=== PATIENT | male | born 1955 | race Caucasian/White ===

== ENCOUNTER 2016-05-16 11:59 | Emergency (ER) | payer OTHER ==
[~2016-05-16] VITALS: Ht 180.3 cm; Wt 62.3 kg
[~2016-05-16 11:59] MED LIST: /AUGM875TA OR; /MOXI40TA GT; ACET50TA GT; ACET650T12 PO; ACET65TA OR; ALB2.5NEB NEB; AMOX875T19 GT; BACL10TA2 GT; BACT800T5 GT; BACT800T5 PEG; CAPT125TA GT; CAPT125TA PO; CEFT500T OR; CETI10TA GT; CETI10TA PO; CETI5SOL3 PO; CLIN300C GT; CLIN300C OR; CLIN300C PEG; CLOT10TR MT; COZA25TA8 OR; DEXILANT PO; ERYT2SO GT; FLON0.05; FLUD0.1T GT; FLUD1TA PO; LEVA500T PO; LEVO100T5 PO; LEVO25TABR GT; METO5TAB2 OR; MIDO2.5T GT; MIDO25TA PO; NASONEX INH; PREV30CA11 PO; PREV30CA6 GT; SING10TA31 GT; SULF0.1S GT; TYLE325T5 PO; VITAMIN D PO; XANA0.25 GT; ZOLO20CO GT; ZOLO50TA GT; [UNRECOGNIZED DRUG - CODE] GT
[2016-05-16] MEDS ORDERED: NIFE10CA2 PO (12:15)
[2016-05-16 13:14] LABS: BASO % 0.7 % (0.0-1.0); EOS # 0.1 K/mm3 (0.0-0.50); EOS % 1.8 % (0.0-3.0); LARGE UNSTAINED CELL # 0.1 K/mm3 (0.0-0.4); LARGE UNSTAINED CELL % 1.1 % (0.0-4.0); LYMPH # 0.6 K/mm3 (1.5-4.5); LYMPH % 8.9 % (24.0-44.0); MEAN CORPUSCULAR HEMOGLOBIN 30.2 pg (27.0-33.0); MEAN CORPUSCULAR HGB CONC 32.8 g/dl (32.0-36.5); MEAN CORPUSCULAR VOLUME 92.1 fl (80.0-96.0); MONO # 0.2 K/mm3 (0.0-0.8); MONO % 4.2 % (0.0-5.0); NEUTROPHILS # 4.7 K/mm3 (1.8-7.7); NEUTROPHILS % 83.3 % (36.0-66.0); PLATELET COUNT, AUTOMATED 166 k/mm3 (150-450); WHITE BLOOD COUNT 5.6 K/mm3 (4.0-10.0)
[2016-05-16] MEDS ORDERED: METOCLOPRAMIDE INJ 10MG/2ML VIAL (J2765) IV ONE (13:15)
[2016-05-16] MEDS ORDERED: MORPHINE 2 MG/ML 1ML SYRINGE IV PRN (13:15)
[2016-05-16] MEDS ORDERED: KETOROLAC 30 MG/ML VIAL (J1885) IV ONE (13:15)
[2016-05-16 13:26] LABS: ANION GAP 4 MEQ/L (8-16); BLOOD UREA NITROGEN 9 MG/DL (7-18); CALCIUM LEVEL 9.4 MG/DL (8.5-10.1); CARBON DIOXIDE LEVEL 30 MEQ/L (21-32); CHLORIDE LEVEL 104 MEQ/L (98-107); CREATININE FOR GFR 0.66 MG/DL (0.70-1.30); GLOMERULAR FILTRATION RATE > 60.0 (>56); GLUCOSE, FASTING 95 MG/DL (70-105); POTASSIUM SERUM 3.5 MEQ/L (3.5-5.1); SODIUM LEVEL 138 MEQ/L (136-145)
[2016-05-16 13:28] LABS: INR 1.02
[2016-05-16 13:38] LABS: THYROXINE (T4) 9.7 UG/DL (4.5-12.0)
[2016-05-16] MEDS ORDERED: NS 500 ML IV ONE (14:45)
--- NOTE | 2016-05-16 15:18 | REP ---
Emergency noncontrast head CT. History: CVA. Comparison head CT study is from October 25, 2014. CT findings: Digital lateral film critic radiograph is unremarkable. Bone window settings demonstrate an intact bony calvarium. There is polysinusitis change involving bilateral ethmoid, right sphenoid, left maxillary and right frontal sinuses. This is somewhat more pronounced than on the prior study. There is vascular calcification in the distal carotid arteries bilaterally. There are two small old lacunar infarcts in the basal ganglia on the left side. These are unchanged from the October 25, 2014 prior study. There is physiologic calcification of the basal ganglia on the right, unchanged. Andres-white differentiation pattern is intact otherwise. There is no evidence of intracranial hemorrhage. No acute infarction, mass, extra-axial fluid collection or midline shift is seen. Impression: Vascular calcification. Minimal diffuse atrophy. There are two old lacunar infarcts in the left basal ganglia unchanged. No acute intracranial lesion. Signed by Kashif Sykes MD 05/16/2016 03:53 P
--- NOTE | 2016-05-16 15:31 | REP ---
CHEST, SINGLE VIEW: Single view of the chest is performed and compared to prior study of 02/14/2016. There is slight elevation of the left hemidiaphragm. There is mild left apical pleural thickening. There is no acute infiltrate. The heart is normal in size. There is calcification and tortuosity of the thoracic aorta. The mediastinal silhouette is unchanged. There are degenerative changes of the spine. IMPRESSION: No acute infiltrate. Signed by Arcadio Andres MD 05/16/2016 04:24 P
[2016-05-16] MEDS ORDERED: MIDODRINE 2.5 MG TAB PO ONE (16:00)
[2016-05-16] MEDS ORDERED: NORCOTAB PO (16:29)
[2016-05-16] MEDS ORDERED: IBUP600T26 PO (16:32)
--- NOTE | 2016-05-16 17:00 | ECGEPIP ---
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
[2016-05-16 17:34] VITALS: BP 144/95
[2016-05-16] MEDS ORDERED: METO5TAB2 PO (17:39)
[2016-05-16] MEDS ORDERED: REGL5TAB2 PO (17:40)
== END 2016-05-16 17:52 | disposition home or self-care (01) ==
LOC: M ED 14:43
DX: R51 Headache (principal); I10 Essential (primary) hypertension
CPT/HCPCS: 36415; 70450; 71010; 80048; 82550; 82553; 84436; 84443; 84479; 85025; 85610; 85730; 86850; 86900; 86901; 93005; 93041; 94760; 96374; 96375; 99285; J1885; J2765

== ENCOUNTER 2016-07-28 16:32 | Emergency (ER) | payer OTHER ==
[~2016-07-28] VITALS: Ht 180.3 cm; Wt 63.8 kg
[~2016-07-28 16:32] MED LIST changes: +IBUP600T26 PO; +METO5TAB2 PO; +NIFE10CA2 PO; +NORCOTAB PO; +REGL5TAB2 PO
[2016-07-28] MEDS ORDERED: ASCO500T PO (16:46)
[2016-07-28] MEDS ORDERED: AMLO5TAB2 PO (16:46)
[2016-07-28 18:44] LABS: BASO % 0.7 % (0.0-1.0); EOS # 0.6 K/mm3 (0.0-0.50); EOS % 8.8 % (0.0-3.0); LARGE UNSTAINED CELL # 0.1 K/mm3 (0.0-0.4); LARGE UNSTAINED CELL % 1.3 % (0.0-4.0); LYMPH # 0.7 K/mm3 (1.5-4.5); LYMPH % 9.7 % (24.0-44.0); MEAN CORPUSCULAR HEMOGLOBIN 31.9 pg (27.0-33.0); MEAN CORPUSCULAR HGB CONC 33.8 g/dl (32.0-36.5); MEAN CORPUSCULAR VOLUME 94.4 fl (80.0-96.0); MONO # 0.3 K/mm3 (0.0-0.8); MONO % 4.7 % (0.0-5.0); NEUTROPHILS # 4.7 K/mm3 (1.8-7.7); NEUTROPHILS % 74.8 % (36.0-66.0); PLATELET COUNT, AUTOMATED 206 k/mm3 (150-450); RED CELL DISTRIBUTION WIDTH 14.3 % (11.5-14.5); WHITE BLOOD COUNT 6.3 K/mm3 (4.0-10.0)
[2016-07-28 18:47] LABS: INR 0.91
[2016-07-28 18:58] LABS: ANION GAP 5 MEQ/L (8-16); BLOOD UREA NITROGEN 18 MG/DL (7-18); CALCIUM LEVEL 9.2 MG/DL (8.5-10.1); CARBON DIOXIDE LEVEL 30 MEQ/L (21-32); CHLORIDE LEVEL 105 MEQ/L (98-107); CREATININE FOR GFR 1.05 MG/DL (0.70-1.30); GLOMERULAR FILTRATION RATE > 60.0 (>56); GLUCOSE, FASTING 89 MG/DL (70-105); POTASSIUM SERUM 4.2 MEQ/L (3.5-5.1); SODIUM LEVEL 140 MEQ/L (136-145)
--- NOTE | 2016-07-28 19:00 | REPUSA ---
CT of the head Clinical history: CVA. Comparison: 05/16/2016. Technique: Multiple axial CT images were obtained through the head without administration of contrast . Findings: The ventricles and sulci are symmetric bilaterally. There is no evidence of acute hemorrhag e or infarct. There is no midline shift, mass effect, or extra-axial fluid collection. The osseous st ructures are unremarkable. The visualized paranasal sinuses and mastoid air cells are clear. Impression: Negative study.
--- NOTE | 2016-07-28 19:09 | REP ---
AP PORTABLE CHEST: 07/28/2016. Comparison: 05/16/2016, 02/14/2016 PA and lateral chest. Clinical history: CVA. Findings: Lungs are adequately inflated. No effusion, infiltrate, atelectasis or mass. The heart, mediastinal and hilar contours were normal for portable technique. There is mildly tortuous, normal for age. Airway is intact. No mediastinal or hilar contour abnormality. Some degenerative changes in the spine and shoulders are mild. Impression: 1. No acute cardiopulmonary disease, stable chest. Signed by Zbigniew Danielle MD 07/28/2016 08:51 P
[2016-07-28] MEDS ORDERED: NS 1,000 ML IV ONE (20:00)
[2016-07-28] MEDS ORDERED: MECL-68 PO (22:50)
[2016-07-28 23:02] VITALS: BP 132/89
--- NOTE | 2016-07-29 07:39 | ECGEPIP ---
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
== END 2016-07-28 23:03 | disposition home or self-care (01) ==
LOC: M ED 18:41
DX: H81.93 Unspecified disorder of vestibular function, bilateral (principal)

== ENCOUNTER → 2016-09-22 | Outpatient (CLI) | payer OTHER ==
[~2016-09-22] MED LIST changes: +AMLO5TAB2 PO; +ASCO500T PO; +AZIT-12 PO; +FLUD0.1T PO; -FLUD1TA PO; +IBUP-1022 PO; -IBUP600T26 PO; +LEVA1TAB2 PO; -LEVA500T PO; +LEVO25TA5 PO; +MECL-68 PO; +MIDO2.5T PO; -MIDO25TA PO; +PREV1CAP PO; -PREV30CA11 PO; +ZYRT10CA PO; +clotrimazole PO
--- NOTE | 2016-09-22 15:16 | REP ---
CAROTID ULTRASOUND: Real-time ultrasound evaluation and duplex Doppler interrogation of the extracranial carotid vasculature is performed. There is mild plaquing and narrowing in both carotid bulbs extending into the internal and external carotid arteries. Luminal narrowing is less than 50%. There is no evidence of hemodynamically significant stenosis of either internal carotid artery. Normal flow velocities are seen. The vertebral arteries demonstrate normal direction of flow. RIGHT LEFT Peak systolic velocity ICA 69.7 cm/s 68.8 cm/s End diastolic velocity ICA 25 cm/s 26.7 cm/s Peak systolic velocity CCA 80.6 cm/s 83.1 cm/s Peak systolic velocity ECA 80 cm/s 81.8 cm/s ICA/CCA ratio 0.86 0.82 IMPRESSION: Bilateral luminal narrowing of the internal carotid arteries less than 50%. No evidence of hemodynamically significant stenosis. Signed by Arcadio Andres MD 09/22/2016 03:08 P
== END ==
LOC: M RAD 14:10
PROVIDERS: ATTEND Surgery
DX: I10 Essential (primary) hypertension (principal); Z92.3 Personal history of irradiation

== ENCOUNTER 2016-10-17 19:56 | Emergency (ER) | payer OTHER ==
[~2016-10-17] VITALS: Ht 180.3 cm; Wt 64.3 kg
[~2016-10-17 19:56] MED LIST changes: -AZIT-12 PO; -LEVO25TA5 PO; -ZYRT10CA PO; -clotrimazole PO
[2016-10-17] MEDS ORDERED: PREV1CAP PO (20:22)
[2016-10-17] MEDS ORDERED: LEVO25TA5 PO (20:22)
[2016-10-17] MEDS ORDERED: ZYRT10CA PO (20:22)
[2016-10-17] MEDS ORDERED: FLUD0.1T PO (20:22)
[2016-10-17] MEDS ORDERED: clotrimazole PO (20:22)
[2016-10-17] MEDS ORDERED: ACETAMINOPHEN TAB 650MG DOSE (2X325MG) PO ONE (22:30)
[2016-10-17 22:59] LABS: BASO % 0.6 % (0.0-1.0); EOS # 0.3 K/mm3 (0.0-0.50); EOS % 3.4 % (0.0-3.0); LARGE UNSTAINED CELL # 0.1 K/mm3 (0.0-0.4); LARGE UNSTAINED CELL % 1.6 % (0.0-4.0); LYMPH # 0.6 K/mm3 (1.5-4.5); LYMPH % 7.4 % (24.0-44.0); MEAN CORPUSCULAR HEMOGLOBIN 32.6 pg (27.0-33.0); MEAN CORPUSCULAR HGB CONC 34.8 g/dl (32.0-36.5); MEAN CORPUSCULAR VOLUME 93.7 fl (80.0-96.0); MONO # 0.4 K/mm3 (0.0-0.8); MONO % 4.7 % (0.0-5.0); NEUTROPHILS # 6.4 K/mm3 (1.8-7.7); NEUTROPHILS % 82.3 % (36.0-66.0); PLATELET COUNT, AUTOMATED 186 k/mm3 (150-450); RED CELL DISTRIBUTION WIDTH 13.2 % (11.5-14.5); WHITE BLOOD COUNT 7.7 K/mm3 (4.0-10.0)
[2016-10-17 23:13] LABS: ALBUMIN 3.9 GM/DL (3.2-5.2); ALBUMIN/GLOBULIN RATIO 1.11 (1.00-1.93); ALKALINE PHOSPHATASE 72 U/L (45-117); ALT/SGPT 16 U/L (12-78); ANION GAP 7 MEQ/L (8-16); AST/SGOT 9 U/L (15-37); BILIRUBIN,DIRECT 0.2 MG/DL (0.0-0.2); BILIRUBIN,TOTAL 0.4 MG/DL (0.2-1.0); BLOOD UREA NITROGEN 14 MG/DL (7-18); CALCIUM LEVEL 8.4 MG/DL (8.5-10.1); CARBON DIOXIDE LEVEL 28 MEQ/L (21-32); CHLORIDE LEVEL 106 MEQ/L (98-107); CREATININE FOR GFR 1.03 MG/DL (0.70-1.30); GLOMERULAR FILTRATION RATE > 60.0 (>56); GLUCOSE, FASTING 94 MG/DL (70-105); POTASSIUM SERUM 4.7 MEQ/L (3.5-5.1); SODIUM LEVEL 141 MEQ/L (136-145); TOTAL PROTEIN 7.4 GM/DL (6.4-8.2)
--- NOTE | 2016-10-17 23:20 | REPUSA ---
Clinical history: Cough. Comparison: None. Findings: Frontal and lateral views of the chest were obtained. The mediastinum and cardiac silhouett e are within normal limits. The lungs are clear. No pleural effusion or pneumothorax is seen. The oss eous structures and soft tissues are unremarkable. Impression: No acute disease.
[2016-10-17] MEDS ORDERED: AZIT-12 PO (23:40)
[2016-10-17] MEDS ORDERED: AZITHROMYCIN 250 MG TAB PO ONE (23:45)
[2016-10-17 23:54] VITALS: BP 154/74
== END 2016-10-17 23:57 | disposition home or self-care (01) ==
LOC: M ED 19:56
DX: J20.9 Acute bronchitis, unspecified (principal); Z85.810 Personal history of malignant neoplasm of tongue; Z93.0 Tracheostomy status

== ENCOUNTER → 2016-10-23 | Outpatient (REF) | payer OTHER ==
[~2016-10-23] MED LIST changes: +AZIT-12 PO; +LEVO25TA5 PO; +ZYRT10CA PO; +clotrimazole PO
== END ==
LOC: M LAB REF 12:07
PROVIDERS: ATTEND Nurse Practitioner Family
DX: R05 Cough (principal)

== ENCOUNTER → 2017-01-23 | Outpatient (REF) | payer OTHER | LOC: M LAB REF 17:11 | PROVIDERS: ATTEND Nurse Practitioner Adult Health | DX: J06.9 Acute upper respiratory infection, unspecified (principal) ==

== ENCOUNTER → 2017-03-07 | Outpatient (RCR) | payer OTHER | END | disposition home or self-care (01) | LOC: M ST 10:30 | DX: Z51.89 Encounter for other specified aftercare (principal); Z90.02 Acquired absence of larynx ==

== ENCOUNTER 2017-03-27 09:52 | Outpatient (RCR) | payer OTHER | END 2017-04-04 | LOC: M ST 09:52 | DX: Z51.89 Encounter for other specified aftercare (principal); Z90.02 Acquired absence of larynx | CPT/HCPCS: 92597 ==

== ENCOUNTER 2017-03-29 14:13 | Emergency (ER) | payer OTHER ==
[2017-03-29] MEDS: METHOCARBAMOL 500 MG TAB PO (15:41)
[2017-03-29] MEDS: IBUPROFEN 800 MG TAB PO (15:41)
[2017-03-29] MEDS: NORCO, ANEXSIA 5/325MG TABLET (HYDROcodone/ACETAMINOPHEN) PO (15:42)
== END 2017-03-29 15:58 | disposition home or self-care (01) ==
LOC: M ED 14:13
DX: S29.011A Strain of muscle and tendon of front wall of thorax, initial encounter (principal); X50.0XXA Overexertion from strenuous movement or load, initial encounter; Y92.018 Other place in single-family (private) house as the place of occurrence of the external cause; Y93.29 Activity, other involving ice and snow; I10 Essential (primary) hypertension; K21.9 Gastro-esophageal reflux disease without esophagitis; E07.9 Disorder of thyroid, unspecified; E78.9 Disorder of lipoprotein metabolism, unspecified; Z85.810 Personal history of malignant neoplasm of tongue; Z88.8 Allergy status to other drugs, medicaments and biological substances
CPT/HCPCS: 71101

== ENCOUNTER 2017-04-05 13:18 | Outpatient (RCR) | payer OTHER | END 2017-05-05 | LOC: M ST 13:18 | DX: Z51.89 Encounter for other specified aftercare (principal); Z90.02 Acquired absence of larynx ==

== ENCOUNTER 2017-06-29 21:14 | Emergency (ER) | payer OTHER ==
[2017-06-29 22:24] LABS: BASO % 0.3 % (0.0-1.0); EOS % 0.1 % (0.0-3.0); HEMATOCRIT 40.4 % (42.0-52.0); HEMOGLOBIN 13.5 g/dl (13.5-17.5); IMMATURE GRANULOCYTE % 0.4 % (0-3.0); LYMPH # 0.4 10^3/uL (1.5-4.5); LYMPH % 4.3 % (24.0-44.0); MEAN CORPUSCULAR HEMOGLOBIN 30.7 pg (27.0-33.0); MEAN CORPUSCULAR HGB CONC 33.4 g/dl (32.0-36.5); MEAN CORPUSCULAR VOLUME 91.8 fl (80.0-96.0); MONO # 0.6 10^3/uL (0.0-0.8); MONO % 6.4 % (0.0-5.0); NEUTROPHILS % 88.5 % (36.0-66.0); PLATELET COUNT, AUTOMATED 186 10^3/uL (150-450); RED CELL DISTRIBUTION WIDTH 14.7 % (11.5-14.5)
[2017-06-29 22:33] LABS: ALBUMIN 3.9 GM/DL (3.2-5.2); ALBUMIN/GLOBULIN RATIO 1.11 (1.00-1.93); ALKALINE PHOSPHATASE 80 U/L (45-117); ALT/SGPT 27 U/L (12-78); ANION GAP 9 MEQ/L (8-16); AST/SGOT 25 U/L (7-37); BILIRUBIN,DIRECT 0.2 MG/DL (0.0-0.2); BILIRUBIN,TOTAL 0.4 MG/DL (0.2-1.0); BLOOD UREA NITROGEN 15 MG/DL (7-18); CALCIUM LEVEL 8.7 MG/DL (8.5-10.1); CARBON DIOXIDE LEVEL 26 MEQ/L (21-32); CHLORIDE LEVEL 106 MEQ/L (98-107); CREATININE FOR GFR 1.08 MG/DL (0.70-1.30); GLOMERULAR FILTRATION RATE > 60.0 (>56); GLUCOSE, FASTING 107 MG/DL (70-100); POTASSIUM SERUM 4.1 MEQ/L (3.5-5.1); SODIUM LEVEL 141 MEQ/L (136-145); TOTAL PROTEIN 7.4 GM/DL (6.4-8.2)
[2017-06-29 22:34] LABS: LACTIC ACID SEPSIS PROTOCOL 1.7 MMOL/L (0.4-2.0)
[2017-06-29 23:07] LABS: INFLUENZA A AMPLIFICATION NEGATIVE (NEGATIVE); INFLUENZA B AMPLIFICATION NEGATIVE (NEGATIVE)
[2017-06-29] MEDS: KETOROLAC 30 MG/ML VIAL (J1885) IV (23:09)
[2017-06-29] MEDS: AZITHROMYCIN 250 MG TAB PO (23:10)
[2017-06-29] MEDS: OXYCODONE/APAP 5MG/325MG(BULK FOR ED) 1 TABLET PO (23:10)
[2017-06-29] MEDS ORDERED: ONDANSETRON 4MG/2ML VIAL (J2405) As Ordered (23:38)
[2017-06-29] MEDS: ONDANSETRON 4MG/2ML VIAL (J2405) IV (23:53)
== END 2017-06-29 23:58 | disposition home or self-care (01) ==
LOC: M ED 21:14
DX: J20.9 Acute bronchitis, unspecified (principal); M54.9 Dorsalgia, unspecified; I10 Essential (primary) hypertension; E03.9 Hypothyroidism, unspecified; Z79.899 Other long term (current) drug therapy; Z88.8 Allergy status to other drugs, medicaments and biological substances
CPT/HCPCS: J2405

== ENCOUNTER → 2018-04-23 | Outpatient (REF) | payer MEDICARE, OTHER ==
[~2018-04-23] MED LIST changes: -/MOXI40TA GT; -ACET50TA GT; +ALPR2TAB3 PO; -AMLO5TAB2 PO; +AMLO5TAB6 PO; +AVEL1TAB2 GT; +CAPT12.52 PO; -CAPT125TA GT; -CAPT125TA PO; +CAPT1TAB19 GT; +HYDR-3715 PO; +LEVA750T7 PO; +MAPA500T17 GT; -NORCOTAB PO; +ROBA500T PO; +TYLE500T78 PO; +ZITHTAB PO
== END ==
LOC: M LAB REF 17:05
PROVIDERS: ATTEND Internal Medicine Pulmonary Disease
DX: J47.9 Bronchiectasis, uncomplicated (principal)

== ENCOUNTER 2018-06-08 22:10 | Emergency (ER) | payer MEDICARE, BC ==
[2018-06-08] MEDS ORDERED: NS 500 ML IV ONE (22:30)
[2018-06-08] MEDS ORDERED: ACETAMINOPHEN 500 MG TAB PO ONE (22:30)
[2018-06-08 23:18] LABS: INFLUENZA A AMPLIFICATION NEGATIVE (NEGATIVE); INFLUENZA B AMPLIFICATION NEGATIVE (NEGATIVE)
[2018-06-08 23:19] LABS: HEMATOCRIT 35.9 % (42.0-52.0); HEMOGLOBIN 11.9 g/dl (13.5-17.5); MEAN CORPUSCULAR HEMOGLOBIN 29.5 pg (27.0-33.0); MEAN CORPUSCULAR HGB CONC 33.1 g/dl (32.0-36.5); MEAN CORPUSCULAR VOLUME 88.9 fl (80.0-96.0); PLATELET COUNT, AUTOMATED 195 10^3/uL (150-450); RED BLOOD COUNT 4.04 10^6/uL (4.30-6.10); WHITE BLOOD COUNT 11.3 10^3/uL (4.0-10.0)
[2018-06-08] MEDS ORDERED: NORV5TAB PO (23:26)
[2018-06-08] MEDS ORDERED: ATOR1TAB21 PO (23:26)
[2018-06-08] MEDS ORDERED: ZYRTTAB8 PO (23:26)
[2018-06-08] MEDS ORDERED: LISI-538 PO (23:26)
[2018-06-08] MEDS ORDERED: CAPT1TAB17 PO (23:26)
[2018-06-08] MEDS ORDERED: VITA500C24 PO (23:26)
[2018-06-08] MEDS ORDERED: SYNT75TA PO (23:26)
[2018-06-08] MEDS ORDERED: FLUD0.1T PO (23:26)
[2018-06-08] MEDS ORDERED: MIDO2.5T PO (23:26)
[2018-06-08 23:30] LABS: BLOOD UREA NITROGEN 11 MG/DL (7-18); CALCIUM LEVEL 8.2 MG/DL (8.8-10.2); CARBON DIOXIDE LEVEL 25 MEQ/L (21-32); CHLORIDE LEVEL 111 MEQ/L (98-107); CREATININE FOR GFR 0.96 MG/DL (0.70-1.30); GLOMERULAR FILTRATION RATE > 60.0 (>49); GLUCOSE, FASTING 109 MG/DL (70-100); POTASSIUM SERUM 4.1 MEQ/L (3.5-5.1); SODIUM LEVEL 143 MEQ/L (136-145)
[2018-06-08] MEDS ORDERED: dexameTHASONE 20 MG/5 ML VIAL (J1100) IV ONE (23:45)
[2018-06-08] MEDS ORDERED: LevoFLOXacin IV 500 MG in APPROPRIATE DILUENT 1 EA IV ONE (23:45)
[2018-06-08] MEDS ORDERED: PRED20TA PO (23:49)
[2018-06-08] MEDS ORDERED: LEVA1TAB2 PO (23:49)
[2018-06-09] MEDS ORDERED: ZITHTAB PO (00:03)
[2018-06-09] MEDS ORDERED: AZITHROMYCIN INJ 500 MG, VIAL MATE ADAPTER 1 EACH in D5W 250 ML IV ONE (00:15)
[2018-06-09 01:26] VITALS: BP 116/76
--- NOTE | 2018-06-09 11:56 | REP ---
CHEST, TWO VIEWS: Two views of the chest are performed and compared to prior studies most recent of which is 04/22/2018. There is mild left apical pleural thickening which is chronic and stable. No acute infiltrate is seen. The heart is normal in size. There is mild calcification of the thoracic aorta. The mediastinal silhouette is unchanged. Metallic plate and screws are again seen in the lower cervical spine. There are degenerative changes of the thoracic spine. IMPRESSION: No acute infiltrate. Electronically Signed by Arcadio Andres MD 06/09/2018 12:29 P
== END 2018-06-09 01:38 | disposition home or self-care (01) ==
LOC: M ED 22:10
DX: J20.9 Acute bronchitis, unspecified (principal); E11.9 Type 2 diabetes mellitus without complications; I10 Essential (primary) hypertension; E03.9 Hypothyroidism, unspecified; C02.9 Malignant neoplasm of tongue, unspecified; J43.9 Emphysema, unspecified; J69.8 Pneumonitis due to inhalation of other solids and liquids; Z93.0 Tracheostomy status; Z90.02 Acquired absence of larynx; Z87.891 Personal history of nicotine dependence; Z79.899 Other long term (current) drug therapy; Z88.8 Allergy status to other drugs, medicaments and biological substances
CPT/HCPCS: 71046; 80048; 81001; 83605; 85027; 87040; 87502; 96365; 96375; 99284; J0456; J1100

== ENCOUNTER 2018-06-14 12:51 | Emergency (ER) | payer MEDICARE, BC ==
[~2018-06-14] VITALS: Ht 180.3 cm; Wt 71.5 kg
[~2018-06-14 12:51] MED LIST changes: +ATOR1TAB21 PO; +CAPT1TAB17 PO; +LISI-538 PO; +NORV5TAB PO; +PRED20TA PO; +SYNT75TA PO; +VITA500C24 PO; +ZYRTTAB8 PO
--- NOTE | 2018-06-14 14:03 | REP ---
Duplex extremity venous ultrasound: Left lower extremity. History: Left calf pain. Question DVT. Findings: The deep veins are anechoic and fully compressible from the groin to the popliteal fossa in the left lower extremity. Color flow imaging is homogeneous. Spectral Doppler interrogation demonstrates intact respiratory variation in flow and normal manual augmentation of flow. There is no evidence of deep vein thrombosis. Impression: Negative left lower extremity duplex venous ultrasound. No evidence of deep vein thrombosis. Electronically Signed by Kashif Sykes MD 06/14/2018 01:55 P
[2018-06-14 14:17] VITALS: BP 161/109
== END 2018-06-14 14:29 | disposition home or self-care (01) ==
LOC: M ED 12:51
DX: S86.819A Strain of other muscle(s) and tendon(s) at lower leg level, unspecified leg, initial encounter (principal); Y92.9 Unspecified place or not applicable; Y93.9 Activity, unspecified; Y99.9 Unspecified external cause status; I10 Essential (primary) hypertension; Z88.1 Allergy status to other antibiotic agents; Z79.899 Other long term (current) drug therapy

== ENCOUNTER → 2019-07-14 | Outpatient (REF) | payer MEDICARE, BC ==
[~2019-07-14] MED LIST changes: -MECL-68 PO; +MECL1TAB31 PO
== END ==
LOC: M LAB REF 17:39
PROVIDERS: ATTEND Internal Medicine
DX: R51 Headache (principal)

== ENCOUNTER → 2020-01-13 | Outpatient (REF) | payer MEDICARE, BC ==
[~2020-01-13] MED LIST changes: +AMLO1TAB24 PO; -AMLO5TAB6 PO
[2020-01-13 17:08] LABS: RHEUMATOID FACTOR QUANT < 10.0 IU/ML (<15.0)
[2020-01-13 17:19] LABS: TOTAL 25(OH) VITAMIN D 20.9 NG/ML (30.0-100.0)
[2020-01-15 14:09] LABS: ANTINUCLEAR ANTIBODIES DIRECT Negative (Negative)
== END ==
LOC: M LAB REF 16:20
PROVIDERS: ATTEND Internal Medicine
DX: R51.9 Headache, unspecified (principal); Z79.899 Other long term (current) drug therapy

== ENCOUNTER → 2020-08-23 | Outpatient (CLI) | payer MEDICARE, BC ==
[~2020-08-23] MED LIST changes: -LISI-538 PO; +LISI20TA33 PO
--- NOTE | 2020-08-23 14:41 | REP ---
INDICATION: COUGH,FEVER. COMPARISON: Comparison chest x-ray June 08, 2018. TECHNIQUE: Two views.. FINDINGS: There is increased density behind the heart in the left lower lobe consistent with early pneumonia.a lung chandra are otherwise clear. Pleural angles are sharp. The heart is mildly enlarged. Aorta is tortuous. There are degenerative changes in the thoracic spine. A fusion plate is noted in the lower cervical spine. IMPRESSION: Left lower lobe infiltrate consistent with pneumonia.. <Electronically signed by Federico Sykes > 08/23/20 [id number]
[2020-08-23 16:55] LABS: BASO # 0.1 10^3/uL (0.0-0.2); BASO % 0.6 % (0.0-1.0); EOS # 0.1 10^3/uL (0.0-0.5); EOS % 0.6 % (0.0-3.0); HEMATOCRIT 48.1 % (42.0-52.0); HEMOGLOBIN 15.1 g/dl (13.5-17.5); LYMPH # 0.8 10^3/uL (1.5-5.0); LYMPH % 9.6 % (24.0-44.0); MEAN CORPUSCULAR HEMOGLOBIN 30.5 pg (27.0-33.0); MEAN CORPUSCULAR HGB CONC 31.4 g/dl (32.0-36.5); MEAN CORPUSCULAR VOLUME 97.2 fl (80.0-96.0); MONO # 0.7 10^3/uL (0.0-0.8); NEUTROPHILS # 6.9 10^3/uL (1.5-8.5); NEUTROPHILS % 80.7 % (36.0-66.0); PLATELET COUNT, AUTOMATED 252 10^3/uL (150-450); RED BLOOD COUNT 4.95 10^6/uL (4.30-6.10); WHITE BLOOD COUNT 8.5 10^3/uL (4.0-10.0)
== END ==
LOC: M WUC 14:13
PROVIDERS: ATTEND Physician Assistant
DX: R05 Cough (principal); R50.9 Fever, unspecified; R91.8 Other nonspecific abnormal finding of lung field

== ENCOUNTER → 2020-08-25 | Outpatient (CLI) | payer MEDICARE, BC ==
--- NOTE | 2020-08-27 18:23 | REPVR ---
PROCEDURE INFORMATION: Exam: CT Maxillofacial Without Contrast, Sinus Exam date and time: 08/25/2020 2:19 PM Age: 64 years old Clinical indication: Maxilla pain; Prior surgery; Surgery date: 6+ months; Additional info: Chronic pansinusitis TECHNIQUE: Imaging protocol: CT Maxillofacial without contrast. Focus on the sinuses. Radiation optimization: All CT scans at this facility use at least one of these dose optimization techniques: automated exposure control; mA and/or kV adjustment per patient size (includes targeted exams where dose is matched to clinical indication); or iterative reconstruction. COMPARISON: CT Head without contrast 07/28/2016 6:37 PM FINDINGS: Frontal sinuses: Frontal sinuses are clear. Ethmoid air cells: Status post bilateral ethmoidectomy with residual membranous thickening demonstrated in the ethmoid cavity. Sphenoid sinuses: Sphenoid sinuses are clear. Maxillary sinuses: Bilateral maxillary sinusitis, right greater than left. There are no air-fluid levels. Patient appears to be status post right and left maxillary antrostomy. Nasal cavity/Septum: Boggy edematous appearance of the nasal mucosa with possible nasal polyposis. Orbital cavity: See "Maxillary sinuses" finding. Bones/joints: Unremarkable. Soft tissues: Unremarkable. IMPRESSION: 1. Bilateral maxillary sinusitis, right greater than left. There are no air-fluid levels. Patient appears to be status post right and left maxillary antrostomy. 2. Status post bilateral ethmoidectomy with residual membranous thickening demonstrated in the ethmoid cavity. 3. Boggy edematous appearance of the nasal mucosa with possible nasal polyposis. Electronically signed by: Pedro Wagoner On 08/27/2020 18:22:41 PM
== END ==
LOC: M PLAIMG 13:53
PROVIDERS: ATTEND Otolaryngology
DX: J32.4 Chronic pansinusitis (principal); J33.9 Nasal polyp, unspecified

== ENCOUNTER → 2020-10-04 | Outpatient (CLI) | payer MEDICARE, BC ==
[~2020-10-04] MED LIST changes: +CETI10TA4 PO; +LEXA1TAB PO; +LOSA25TA14 PO; +SODI1TAB12 PO; +SYNT50TA PO
== END ==
LOC: M LABSMTC 11:38
PROVIDERS: ATTEND Anesthesiology
DX: Z01.818 Encounter for other preprocedural examination (principal); Z20.822 Contact with and (suspected) exposure to COVID-19

== ENCOUNTER → 2020-10-08 | Day surgery (SDC) | payer MEDICARE, BC ==
[~2020-10-08] VITALS: Ht 180.3 cm; Wt 72.9 kg
[~2020-10-08] MED LIST changes: +LIDOCAINE 2% 100MG/5ML SDV (FOR ANES.) As Ordered ONE; +LOSARTAN 25 MG TAB PO ONE; +NS 1,000 ML IV ONE; +propofoL 200 MG/20 ML VIAL As Ordered ONE
[2020-10-08 12:27] VITALS: BP 225/134
[2020-10-08 13:06] VITALS: BP 225/134
== END | disposition home or self-care (01) ==
LOC: M OPP 12:12
PROVIDERS: ATTEND Internal Medicine Gastroenterology
DX: R13.10 Dysphagia, unspecified (principal); Z53.09 Procedure and treatment not carried out because of other contraindication

== ENCOUNTER → 2020-10-28 | Outpatient (CLI) | payer MEDICARE, BC ==
[~2020-10-28] MED LIST changes: -LIDOCAINE 2% 100MG/5ML SDV (FOR ANES.) As Ordered ONE; -LOSARTAN 25 MG TAB PO ONE; -NS 1,000 ML IV ONE; -propofoL 200 MG/20 ML VIAL As Ordered ONE
--- NOTE | 2020-10-28 09:27 | REP ---
INDICATION: BRONCHIECTASIS, UNCOMPLICATED. COMPARISON: Comparison chest x-ray August 23, 2020. TECHNIQUE: Two views.. FINDINGS: The patient is status post lower cervical discectomy and fusion plating. There is also evidence of a tracheostomy stoma at the thoracic inlet unchanged. Increased markings are again seen behind the heart in the left base improved from the August 23, 2020 study consistent with some linear scarring. No new infiltrate is appreciated. Pleural angles are sharp. Heart is not felt to be enlarged. The thoracic spine shows degenerative disc changes. Thoracic aorta is calcific. 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 No new infiltrate. Tracheostomy stoma. <Electronically signed by Federico Sykes > 10/28/20 [id number]
== END ==
LOC: M RAD 09:00
PROVIDERS: ATTEND Physician Assistant
DX: J47.9 Bronchiectasis, uncomplicated (principal)

== ENCOUNTER → 2020-12-22 | Outpatient (CLI) | payer MEDICARE, BC ==
--- NOTE | 2020-12-22 11:41 | REP ---
INDICATION: PAIN COMPARISON: None. TECHNIQUE: AP, lateral, bilateral oblique and sunrise views. FINDINGS: The osseous structures and joint spaces are intact and essentially age-appropriate. There is no evidence for acute fracture or dislocation. No joint effusion is appreciated. Surrounding soft tissues are unremarkable. No subcutaneous emphysema or radiodense foreign body. IMPRESSION: Generalized age-related changes. <Electronically signed by Jaiden Pichardo > 12/22/20 [id number]
== END ==
LOC: M WUC 10:46
PROVIDERS: ATTEND Physician Assistant Medical
DX: M25.562 Pain in left knee (principal)

== ENCOUNTER → 2020-12-29 | Outpatient (CLI) | payer MEDICARE, BC ==
--- NOTE | 2020-12-29 15:39 | REP ---
INDICATION: LT LEG EDEMA ? DVT. COMPARISON: None. TECHNIQUE: Multiple ultrasonographic images of the deep venous structures of the left lower extremity were obtained from the inguinal ligament to the ankle. Venous compression techniques, color doppler imaging, and augmentation techniques were also obtained where appropriate. As per the ACR guidelines the anterior tibial vein can not be effectively evaluated. Only compression techniques in the calf on the peroneal and posterior tibial veins was attempted/performed. FINDINGS: There is no abnormal echogenic material seen within any of the visualized deep venous structures that would suggest acute thrombosis. Coaptation is unremarkable throughout. Doppler interrogation shows an expected response to respiratory variability and augmentation in the thigh. Compression techniques in the calf showed no abnormality. The color flow images show what appears to be a normal vascular pattern throughout the thigh. IMPRESSION: There is no ultrasonographic evidence of deep venous thrombosis involving any of the visualized deep venous structures of the left lower extremity as described above. <Electronically signed by Efrain Jaime > 12/29/20 [id number]
== END ==
LOC: M RAD 14:48
PROVIDERS: ATTEND Physician Assistant Medical
DX: M79.605 Pain in left leg (principal); R60.9 Edema, unspecified

== ENCOUNTER → 2022-01-09 | Outpatient (CLI) | payer MEDICARE, BC ==
[~2022-01-09] MED LIST changes: +LOSA25TA13 PO; -LOSA25TA14 PO
== END ==
LOC: M RAD 13:29
PROVIDERS: ATTEND Internal Medicine Pulmonary Disease
DX: J47.9 Bronchiectasis, uncomplicated (principal)

== ENCOUNTER → 2022-06-09 | Outpatient (CLI) | payer MEDICARE, BC | LOC: M PLAIMG 10:37 | PROVIDERS: ATTEND Internal Medicine Pulmonary Disease | DX: M85.88 Other specified disorders of bone density and structure, other site (principal); J47.9 Bronchiectasis, uncomplicated ==

== ENCOUNTER → 2023-05-03 | Outpatient (REF) | payer MEDICARE, BC ==
[~2023-05-03] MED LIST changes: +MECL-209 PO; -MECL1TAB31 PO
== END ==
LOC: M LAB REF 13:13
PROVIDERS: ATTEND Internal Medicine
DX: M54.2 Cervicalgia (principal)

== ENCOUNTER → 2023-05-04 | Outpatient (CLI) | payer MEDICARE, BC | LOC: M WHC 07:00 | PROVIDERS: ATTEND Internal Medicine | DX: M54.2 Cervicalgia (principal); Z85.810 Personal history of malignant neoplasm of tongue ==

== ENCOUNTER → 2023-05-04 | Outpatient (CLI) | payer MEDICARE, BC ==
[~2023-05-04] MED LIST changes: +ISOVUE-370 76% 100ML VIAL ONE
== END ==
LOC: M PLAIMG 07:17
PROVIDERS: ATTEND Internal Medicine
DX: M54.2 Cervicalgia (principal); Z85.810 Personal history of malignant neoplasm of tongue

== ENCOUNTER 2024-02-04 10:39 | Emergency (ER) | payer MEDICARE, BC ==
[~2024-02-04] VITALS: Ht 180.3 cm; Wt 64.0 kg
[~2024-02-04 10:39] MED LIST changes: -ISOVUE-370 76% 100ML VIAL ONE; -MIDO2.5T PO; +MIDO2.5T3 PO; -NIFE10CA2 PO; +NIFE10CA61 PO
[2024-02-04] MEDS ORDERED: MIDO5TA (11:11)
[2024-02-04] MEDS ORDERED: PERM5CRE9 (11:11)
[2024-02-04 12:03] LABS: BASO # 0.1 10^3/uL (0.0-0.2); BASO % 1.6 % (0.0-1.0); EOS # 0.6 10^3/uL (0.0-0.5); EOS % 11.1 % (0.0-3.0); HEMATOCRIT 39.7 % (42.0-52.0); HEMOGLOBIN 13.1 g/dl (13.5-17.5); LYMPH # 0.7 10^3/uL (1.5-5.0); LYMPH % 11.2 % (24.0-44.0); MEAN CORPUSCULAR HEMOGLOBIN 31.4 pg (27.0-33.0); MEAN CORPUSCULAR VOLUME 95.2 fl (80.0-96.0); MONO # 0.3 10^3/uL (0.0-0.8); MONO % 5.7 % (2.0-8.0); NEUTROPHILS # 4.1 10^3/uL (1.5-8.5); NEUTROPHILS % 70.1 % (36.0-66.0); PLATELET COUNT, AUTOMATED 209 10^3/uL (150-450); RED BLOOD COUNT 4.17 10^6/uL (4.30-6.10); WHITE BLOOD COUNT 5.8 10^3/uL (4.0-10.0)
[2024-02-04 12:32] LABS: CK-MB VALUE MASS < 1.0 NG/ML (<3.6)
[2024-02-04 12:34] LABS: CPK CREATINE PHOSPHOKINASE 41 U/L (46-171); MB/CK RELATIVE INDEX 2.43 (< OR =4)
[2024-02-04 12:35] LABS: ALBUMIN 3.3 G/DL (3.2-5.2); ALKALINE PHOSPHATASE 76 U/L (40-129); ALT/SGPT 10 U/L (7.0-40); AST/SGOT 13 U/L (<34); BILIRUBIN,DIRECT 0.2 MG/DL (<0.4); BILIRUBIN,TOTAL 0.6 MG/DL (0.3-1.2); BLOOD UREA NITROGEN 12 MG/DL (9-23); CALCIUM LEVEL 9.2 MG/DL (8.3-10.6); CARBON DIOXIDE LEVEL 30 MMOL/L (20-31); CHLORIDE LEVEL 108 MMOL/L (98-107); CREATININE FOR GFR 1.08 MG/DL (0.70-1.30); GLOMERULAR FILTRATION RATE > 60.0 (>49); GLUCOSE, FASTING 107 MG/DL (74-106); POTASSIUM SERUM 4.3 MMOL/L (3.5-5.1); SODIUM LEVEL 144 MMOL/L (136-145); TOTAL PROTEIN 6.1 G/DL (5.7-8.2)
[2024-02-04] MEDS: NS 500 ML IV ONE (13:21)
[2024-02-04 13:40] LABS: CK-MB VALUE MASS < 1.0 NG/ML (<3.6)
[2024-02-04 13:41] LABS: CPK CREATINE PHOSPHOKINASE 41 U/L (46-171); MB/CK RELATIVE INDEX 2.43 (< OR =4)
[2024-02-04 14:30] VITALS: BP 175/111; TEMP 97.3; O2SAT 95
== END 2024-02-04 14:55 | disposition home or self-care (01) ==
LOC: M ED 10:39
DX: L95.9 Vasculitis limited to the skin, unspecified (principal); I10 Essential (primary) hypertension; Z88.8 Allergy status to other drugs, medicaments and biological substances; Z79.899 Other long term (current) drug therapy

== ENCOUNTER 2024-06-11 10:37 | Inpatient (IN) | payer MEDICARE, BC ==
[~2024-06-11] VITALS: Ht 175.3 cm; Wt 61.0 kg
[2024-06-11] MEDS: LEVOTHYROXINE 50MCG TABLET (0.05MG) PO SCH (06:00)
[2024-06-11] MEDS: CETIRIZINE (ZyrTEC) 10 MG TAB PO SCH (09:00)
[2024-06-11] MEDS: ASCORBIC ACID 500 MG TAB PO SCH (09:00)
[2024-06-11] MEDS: PANTOPRAZOLE 40MG TAB (PROTONIX) PO SCH (09:00)
[2024-06-11] MEDS: ESCITALOPRAM OXALATE 10 MG TAB (LEXAPRO) PO SCH (09:00)
[~2024-06-11 10:37] MED LIST changes: -CLOT10TR MT; +CLOT10TR11 MT; +MIDO5TA PO; +PERM5CRE9
[2024-06-11] MEDS ORDERED: AMOX500T2 PO (10:47)
[2024-06-11] MEDS ORDERED: DUPI300P SUBQ (10:49)
[2024-06-11 11:26] LABS: VENOUS BASE EXCESS -0.2 (-2.0-2.0); VENOUS HCO3 26.4 MMOL/L (23.0-27.0); VENOUS O2 SATURATION 53.9 % (60.0-80.0); VENOUS PARTIAL PRESSURE CO2 50.5 mmHg (38.0-50.0); VENOUS PARTIAL PRESSURE O2 29.3 mmHg (30.0-50.0); VENOUS PH 7.336 UNITS (7.330-7.430); VENOUS STANDARD HCO3 23.3 MMOL/L; VENOUS TOTAL CO2 27.9 MMOL/L (24.0-28.0)
[2024-06-11 11:38] LABS: HEMATOCRIT 42.2 % (42.0-52.0); HEMOGLOBIN 13.5 g/dl (13.5-17.5); MEAN CORPUSCULAR HEMOGLOBIN 30.2 pg (27.0-33.0); MEAN CORPUSCULAR VOLUME 94.4 fl (80.0-96.0); PLATELET COUNT, AUTOMATED 319 10^3/uL (150-450); RED BLOOD COUNT 4.47 10^6/uL (4.30-6.10); WHITE BLOOD COUNT 11.6 10^3/uL (4.0-10.0)
[2024-06-11 11:49] LABS: ALBUMIN 3.2 G/DL (3.2-5.2); BILIRUBIN,DIRECT 0.3 MG/DL (<0.4); BILIRUBIN,TOTAL 0.8 MG/DL (0.3-1.2); CALCIUM LEVEL 8.9 MG/DL (8.3-10.6); CREATININE FOR GFR 0.94 MG/DL (0.70-1.30); GLOMERULAR FILTRATION RATE 89.4 (>49); POTASSIUM SERUM 4.6 MMOL/L (3.5-5.1); TOTAL PROTEIN 7.1 G/DL (5.7-8.2)
[2024-06-11 12:00] LABS: ATYPICAL LYMPH 2 % (0-5); LYMPHOCYTES 6 % (16-44); MONOCYTES 8 % (0-5); NEUTROPHILS 77 % (28-66)
[2024-06-11 12:01] LABS: PLATELET ESTIMATE NORMAL (NORMAL)
[2024-06-11] MEDS: PIPERACILLIN/TAZOBACTAM SOD 3.375 GM in DEXTROSE 5% (D5W) ADV/MINI-BAG 50 ML IV ONE (13:40)
[2024-06-11] MEDS: ACETAMINOPHEN 500 MG TAB PO ONE (13:41)
[2024-06-11] MEDS ORDERED: HOME MED LIST COMPLETE! XX SCH ×2 (14:20)
[2024-06-11] MEDS ORDERED: VITA-183 PO (14:20)
[2024-06-11] MEDS ORDERED: ACET-683 PO (14:20)
[2024-06-11] MEDS ORDERED: ISOVUE-370 76% 100ML VIAL As Ordered ONE (15:34)
[2024-06-11 15:51] LABS: PROCALCITONIN 0.16 ng/ml
[2024-06-11] MEDS: MIDODRINE 5 MG TAB PO SCH (16:04)
[2024-06-11 16:35] VITALS: O2SAT 98
[2024-06-11 16:45] VITALS: O2SAT 95
[2024-06-11 16:52] VITALS: BP 136/82; TEMP 98.4; O2SAT 98
[2024-06-11] MEDS: SODIUM CHLORIDE HYPERTONIC 3% 4ML NEB SOL INH SCH (19:07)
[2024-06-11] MEDS: ALBUTEROL SULFATE 2.5MG/0.5ML INH CONCENTRATE NEB SOLN INH SCH (19:07)
[2024-06-11 19:11] VITALS: O2SAT 100
[2024-06-11] MEDS: PIPERACILLIN/TAZOBACTAM SOD 4.5 GM in DEXTROSE 5% (D5W) ADV/MINI-BAG 50 ML IV SCH (19:47)
[2024-06-11 21:01] VITALS: BP 138/78; TEMP 98.6; O2SAT 98
[2024-06-11] MEDS: HEPARIN SOD (PORCINE) 5000UNITS/ML 1ML VIAL/SYRINGE SC SCH (21:19)
[2024-06-11] MEDS: ATORVASTATIN 20 MG TAB PO SCH (21:20)
[2024-06-11] MEDS: SODIUM CHLORIDE 1 GM TAB PO SCH (21:20)
[2024-06-12] VITALS (21 sets, daily range): BP systolic 102–151; BP diastolic 52–95; TEMP 98–98.8; O2SAT 89–100
[2024-06-12 06:01] LABS: HEMOGLOBIN 12.1 g/dl (13.5-17.5); MEAN CORPUSCULAR HEMOGLOBIN 30.4 pg (27.0-33.0); MEAN CORPUSCULAR HGB CONC 32.7 g/dl (32.0-36.5); PLATELET COUNT, AUTOMATED 293 10^3/uL (150-450); RED BLOOD COUNT 3.98 10^6/uL (4.30-6.10); WHITE BLOOD COUNT 11.8 10^3/uL (4.0-10.0)
[2024-06-12 06:28] LABS: BLOOD UREA NITROGEN 14 MG/DL (9-23); CALCIUM LEVEL 8.7 MG/DL (8.3-10.6); CARBON DIOXIDE LEVEL 30 MMOL/L (20-31); CHLORIDE LEVEL 106 MMOL/L (98-107); CREATININE FOR GFR 0.93 MG/DL (0.70-1.30); GLOMERULAR FILTRATION RATE > 90.0 (>49); GLUCOSE, FASTING 125 MG/DL (74-106); POTASSIUM SERUM 4.5 MMOL/L (3.5-5.1); SODIUM LEVEL 144 MMOL/L (136-145)
[2024-06-12] MEDS: ACETAMINOPHEN 500 MG TAB PO PRN (09:10)
[2024-06-13] VITALS (7 sets, daily range): BP systolic 112–180; BP diastolic 65–110; TEMP 98.1–98.9; O2SAT 94–98
[2024-06-13 08:04] LABS: BASO # 0.1 10^3/uL (0.0-0.2); BASO % 0.5 % (0.0-1.0); EOS # 0.3 10^3/uL (0.0-0.5); EOS % 2.3 % (0.0-3.0); HEMATOCRIT 35.4 % (42.0-52.0); HEMOGLOBIN 11.8 g/dl (13.5-17.5); LYMPH # 0.7 10^3/uL (1.5-5.0); LYMPH % 5.6 % (24.0-44.0); MEAN CORPUSCULAR HEMOGLOBIN 31.1 pg (27.0-33.0); MEAN CORPUSCULAR HGB CONC 33.3 g/dl (32.0-36.5); MEAN CORPUSCULAR VOLUME 93.4 fl (80.0-96.0); MONO # 0.8 10^3/uL (0.0-0.8); MONO % 6.6 % (2.0-8.0); NEUTROPHILS # 10.8 10^3/uL (1.5-8.5); NEUTROPHILS % 84.2 % (36.0-66.0); PLATELET COUNT, AUTOMATED 301 10^3/uL (150-450); RED BLOOD COUNT 3.79 10^6/uL (4.30-6.10); WHITE BLOOD COUNT 12.8 10^3/uL (4.0-10.0)
[2024-06-13 08:13] LABS: CALCIUM LEVEL 8.6 MG/DL (8.3-10.6); CREATININE FOR GFR 0.97 MG/DL (0.70-1.30); GLOMERULAR FILTRATION RATE 86.1 (>49); MAGNESIUM LEVEL 1.9 MG/DL (1.8-2.4); POTASSIUM SERUM 3.9 MMOL/L (3.5-5.1)
[2024-06-13] MEDS: LOSARTAN 25 MG TAB PO PRN (16:00)
[2024-06-14 03:59] VITALS: BP 149/95; O2SAT 98
[2024-06-14 04:00] VITALS: BP 149/95
[2024-06-14 07:39] VITALS: BP 143/83; TEMP 98.7; O2SAT 94
[2024-06-14 08:12] VITALS: BP 143/83
[2024-06-14] MEDS ORDERED: SODI3NEB3 INH (10:17)
[2024-06-14] MEDS ORDERED: CEPH500C PO (10:17)
[2024-06-14] MEDS ORDERED: IPRA0.00 INH ×2 (10:17→17:11)
== END 2024-06-14 11:08 | disposition home or self-care (01) | DRG 177 ==
LOC: M ED 10:37 → M ED INP 10:38 → M PCU 16:28 → OBSVTOIN 06-12 12:25
PROVIDERS: ADMIT Internal Medicine; ATTEND Internal Medicine
DX: J69.0 Pneumonitis due to inhalation of food and vomit (principal); J96.01 Acute respiratory failure with hypoxia; I10 Essential (primary) hypertension; E03.9 Hypothyroidism, unspecified; L30.9 Dermatitis, unspecified; J15.211 Pneumonia due to Methicillin susceptible Staphylococcus aureus; E78.5 Hyperlipidemia, unspecified; K21.9 Gastro-esophageal reflux disease without esophagitis; Z93.0 Tracheostomy status; Z79.890 Hormone replacement therapy; Z79.899 Other long term (current) drug therapy; Z88.1 Allergy status to other antibiotic agents; Z92.3 Personal history of irradiation; Z85.810 Personal history of malignant neoplasm of tongue

== ENCOUNTER → 2024-08-07 | Outpatient (CLI) | payer MEDICARE, BC ==
[~2024-08-07] MED LIST changes: +ACET-683 PO; +AMOX500T2 PO; +CEPH500C PO; +D31000CA6 PO; +DUPI300P SUBQ; +IPRA0.00 INH; +SODI3NEB3 INH
== END ==
LOC: M PLAIMG 09:33
PROVIDERS: ATTEND Internal Medicine Pulmonary Disease
DX: R91.8 Other nonspecific abnormal finding of lung field (principal); J84.10 Pulmonary fibrosis, unspecified